=== PATIENT | male | born 1990 | race African-American/Black ===

== ENCOUNTER 2019-09-19 11:22 | Emergency (ER) | payer BC ==
[~2019-09-19] VITALS: Ht 177.8 cm; Wt 96.2 kg
[2019-09-19 11:46] VITALS: BP 130/85; Ht 177.8 cm; Wt 96.2 kg
== END 2019-09-19 13:28 | disposition home or self-care (01) ==
LOC: ED 11:22
DX: S46.911A Strain of unspecified muscle, fascia and tendon at shoulder and upper arm level, right arm, initial encounter (principal); S39.012A Strain of muscle, fascia and tendon of lower back, initial encounter; S20.211A Contusion of right front wall of thorax, initial encounter; V43.62XA Car passenger injured in collision with other type car in traffic accident, initial encounter; Y93.89 Activity, other specified; Y92.488 Other paved roadways as the place of occurrence of the external cause; Y99.8 Other external cause status

== ENCOUNTER 2019-10-04 22:40 | Emergency (ER) | payer OTHER, BC ==
[~2019-10-04] VITALS: Ht 177.8 cm; Wt 101.6 kg
[2019-10-04 22:54] VITALS: Ht 177.8 cm; Wt 101.6 kg
[2019-10-04 23:18] VITALS: BP 144/80
== END 2019-10-04 23:18 | disposition home or self-care (01) ==
LOC: ED 22:40
DX: S39.012A Strain of muscle, fascia and tendon of lower back, initial encounter (principal); V49.9XXA Car occupant (driver) (passenger) injured in unspecified traffic accident, initial encounter; Y93.89 Activity, other specified; Y92.89 Other specified places as the place of occurrence of the external cause; Y99.8 Other external cause status

== ENCOUNTER 2020-08-21 11:12 | Emergency (ER) | payer BC ==
[~2020-08-21] VITALS: Ht 177.8 cm; Wt 106.6 kg
[2020-08-21 11:32] VITALS: Ht 177.8 cm; Wt 106.6 kg
[2020-08-21 13:13] VITALS: BP 130/84
== END 2020-08-21 13:13 | disposition home or self-care (01) ==
LOC: ED 11:12
DX: S09.90XA Unspecified injury of head, initial encounter (principal); W22.8XXA Striking against or struck by other objects, initial encounter; Y93.89 Activity, other specified; Y92.89 Other specified places as the place of occurrence of the external cause; Y99.8 Other external cause status

== ENCOUNTER 2020-08-30 19:12 | Emergency (ER) | payer BC ==
[~2020-08-30] VITALS: Ht 177.8 cm; Wt 104.5 kg
[2020-08-30 19:19] VITALS: Ht 177.8 cm; Wt 104.5 kg
[2020-08-30 20:21] LABS: BASOPHIL % 0.2 % (0-2); PLATELET COUNT 225 x10^3mcL (130-400); RED CELL DISTRIBUTION WIDTH 15.1 % (11.5-14.5)
[2020-08-30 20:23] LABS: CALCIUM 9.6 mg/dL (8.5-10.1); CARBON DIOXIDE 29.1 mmol/L (21-32); CHLORIDE SERUM 101 mmol/L (98-107); CREATININE SERUM 1.1 mg/dL (0.7-1.3); GFR1 > 60 mL/min; GLUCOSE SERUM 82 mg/dL (74-106); POTASSIUM SERUM 4.1 mmol/L (3.5-5.1); SODIUM SERUM 135 mmol/L (136-145)
[2020-08-30 21:10] VITALS: BP 113/62
== END 2020-08-30 21:10 | disposition home or self-care (01) ==
LOC: ED 19:12
PROVIDERS: Emergency Medicine
DX: R51.9 Headache, unspecified (principal); R55 Syncope and collapse; M41.9 Scoliosis, unspecified
CPT/HCPCS: 82962; Q0092